=== PATIENT | female | born 2000 | race Caucasian/White ===

== ENCOUNTER 2025-03-02 06:45 | Inpatient (IN) | payer BC ==
[~2025-03-02] VITALS: Ht 175.3 cm; Wt 74.7 kg
[2025-03-02] MEDS ORDERED: diphenhydrAMINE 25mg capsule PO PRN (14:40)
[2025-03-02] MEDS ORDERED: acetaminophen 325mg tablet PO PRN ×2 (14:40)
[2025-03-02] MEDS ORDERED: mag hydrox/Alum hydrox/simeth 30ml oral suspension PO PRN (14:40)
[2025-03-02] MEDS ORDERED: magnesium hydroxide 30ml (MOM) UD suspension PO PRN (14:40)
[2025-03-02] MEDS ORDERED: loperamide 2mg capsule PO PRN (14:40)
[2025-03-02] MEDS ORDERED: chlorproMAZINE 25mg tablet PO PRN (14:40)
[2025-03-02 15:57] VITALS: RESP 16; O2SAT 98
[2025-03-02] MEDS ORDERED: MONT-48 PO (16:16)
[2025-03-02] MEDS ORDERED: DULO-31 PO (16:16)
[2025-03-02 16:46] VITALS: BP 115/82; PULSE 82; RESP 16; TEMP 98.3; O2SAT 98
[2025-03-02 20:00] VITALS: BP 120/83; PULSE 98; RESP 19; TEMP 97.8; O2SAT 97
[2025-03-02] MEDS: hydrOXYzine 25 MG tablet PO PRN (20:54)
[2025-03-02] MEDS: traZODone 50mg tablet PO PRN (20:54)
[2025-03-03 06:56] LABS: BASOPHILS % (AUTO) 0.7 % (0-1); EOSINOPHILS # (AUTO) 0.4 X10'3 (0-0.9); EOSINOPHILS % (AUTO) 7.6 % (0-6); HEMATOCRIT 39.1 % (35.0-45.0); HEMOGLOBIN 13.1 g/dl (12.0-16.0); LYMPHOCYTES # (AUTO) 1.9 X10'3 (1.1-4.8); MEAN CORPUSCULAR HEMOGLOBIN 28.6 PG (27.0-31.0); MEAN CORPUSCULAR HGB CONC 33.6 g/dL (33.0-36.5); MEAN CORPUSCULAR VOLUME 84.9 FL (78-98); MEAN PLATELET VOLUME 8.3 FL (7.4-10.4); MONOCYTES # (AUTO) 0.6 X10'3 (0-0.9); MONOCYTES % (AUTO) 10.7 % (2-12); NEUTROPHILS # (AUTO) 2.7 X10'3 (1.8-7.7); PLATELET COUNT 230 X10'3 (140-440); RED CELL DISTRIBUTION WIDTH 12.9 % (11.5-14.5); WHITE BLOOD COUNT 5.7 X10'3 (4.5-11.0)
[2025-03-03 07:00] VITALS: RESP 12; O2SAT 99
[2025-03-03 07:27] LABS: ALANINE AMINOTRANSFERASE 14 U/L (12-78); ALBUMIN 3.6 G/DL (3.4-5.0); ALBUMIN/GLOBULIN RATIO 1.3 (1.1-1.5); ALKALINE PHOSPHATASE 73 IU/L (46-116); ANION GAP 10 (8-16); ASPARTATE AMINO TRANSFERASE 15 U/L (10-37); BILIRUBIN,TOTAL 0.3 MG/DL (0.1-1.0); BLOOD UREA NITROGEN 12 MG/DL (7-18); BUN/CREATININE RATIO 14.3 (10.0-20.0); CALCIUM 8.6 MG/DL (8.5-10.1); CHLORIDE 107 MMOL/L (99-107); CHOL/HDL RATIO 2.8 (0.00-4.99); CHOLESTEROL 143 MG/DL (0-200); CREATININE 0.84 MG/DL (0.40-0.90); GLUCOSE 90 MG/DL (70-104); HDL CHOLESTEROL 52 MG/DL (35-60); LDL CHOLESTEROL 81 MG/DL (50-100); POTASSIUM 4.2 MMOL/L (3.5-5.1); SODIUM 144 MMOL/L (135-145); TOTAL CARBON DIOXIDE 27.4 MMOL/L (24-32); TOTAL PROTEIN 6.4 G/DL (6.4-8.2); TRIGLYCERIDES 54 MG/DL (20-135); eCRCL 109 ML/MIN; eGFR 84 ML/MIN
[2025-03-03 08:00] VITALS: BP 92/61; PULSE 76; RESP 12; TEMP 98.9
[2025-03-03] MEDS: duloxetine 30mg CAPSULE.DR PO SCH (08:00)
[2025-03-03 08:25] LABS: HEMOGLOBIN A1C 4.9 % (4.5-6.2)
[2025-03-03] MEDS: montelukast 10mg tablet PO SCH (08:30)
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
[2025-03-03 19:00] VITALS: RESP 18; O2SAT 98
[2025-03-03 20:00] VITALS: BP 111/64; PULSE 65; RESP 18; TEMP 97.8; O2SAT 98
[2025-03-03] MEDS: buPROPion SR 100mg tab PO SCH (20:13)
[2025-03-03 23:13] VITALS: RESP 18; O2SAT 98
[2025-03-04 08:40] VITALS: BP 102/68; PULSE 98; RESP 16; TEMP 98.1; O2SAT 98
[2025-03-04] MEDS ORDERED: TRAZ-251 PO (11:19)
[2025-03-04] MEDS ORDERED: HYDR-3686 PO (11:19)
[2025-03-04] MEDS ORDERED: BUPR100T15 PO (11:19)
[2025-03-04 11:35] VITALS: RESP 16; O2SAT 98
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
== END 2025-03-04 12:16 | disposition home or self-care (01) | DRG 885 ==
LOC: UNDOADMIN 15:00 → ADULT MH 15:00
PROVIDERS: ADMIT Psychiatry & Neurology Psychiatry; ATTEND Psychiatry & Neurology Psychiatry
PROC: GZHZZZZ Group Psychotherapy (ICD-10-PCS; principal; 2025-03-03)
PROC: GZ51ZZZ Individual Psychotherapy, Behavioral (ICD-10-PCS; 2025-03-03)
DX: F33.2 Major depressive disorder, recurrent severe without psychotic features (principal); R45.851 Suicidal ideations; J45.909 Unspecified asthma, uncomplicated; F43.10 Post-traumatic stress disorder, unspecified; F41.9 Anxiety disorder, unspecified; Z79.899 Other long term (current) drug therapy; Z88.0 Allergy status to penicillin; Z88.5 Allergy status to narcotic agent; Z91.410 Personal history of adult physical and sexual abuse
CPT/HCPCS: 36415; 80053; 80061; 83036; 85025; 87081; 99285; A6250; Q0177